=== PATIENT | male | born 1955 | race Hispanic/Latino ===

== ENCOUNTER 2019-10-23 10:53 | Emergency (ER) | payer MEDICARE ==
--- NOTE | 2019-10-23 13:06 | Emergency Department Report ---
Blank Doc - Documentation Documentation: 64-year-old male that presentrs with URI symptoms. This initial assessment/diagnostic orders/clinical plan/treatment(s) is/are subject to change based on patient's health status, clinical progression and re- assessment by fellow clinical providers in the ED. Further treatment and workup at subsequent clinical providers discretion. Patient/guardians urged not to elope from the ED as their condition may be serious if not clinically assessed and managed. Initial orders include: 1- Patient sent to [facility] for further evaluation and treatment 2- cxr 3- rap flu
--- NOTE | 2019-10-23 13:45 | XRay Report ---
CHEST 2 VIEWS INDICATION: cough. COMPARISON: None FINDINGS: Support devices: None. Heart: Heart size is normal. Previous CABG changes are suspected. Lungs/pleura: No acute air space or interstitial disease. No pneumothorax. Additional findings: None. IMPRESSION: No acute findings. Signer Name: Eddi Wilson Jr, MD Signed: 10/23/2019 1:41 PM Workstation Name: [id number]
[2019-10-23] MEDS ORDERED: dexAMETHasone 4 MG/ML VIAL IM ONE (14:07)
[2019-10-23] MEDS ORDERED: ALBUTEROL 2.5 MG/3 ML NEBU IH ONE (14:07)
[2019-10-23] MEDS ORDERED: IPRATROPIUM 0.02% NEBU 2.5 ML IH ONE (14:07)
[2019-10-23] MEDS ORDERED: HYDROcodone/ACETAMINOPHEN 5-325 MG TAB PO ONE (14:07)
--- NOTE | 2019-10-23 14:49 | Emergency Department Report ---
- General Chief Complaint: Upper Respiratory Infection Stated Complaint: FLU LIKE SYMPTOMS Time Seen by Provider: 10/23/19 13:05 Source: patient Mode of arrival: Ambulatory Limitations: No Limitations - History of Present Illness Initial Comments: Patient is a 64-year-old male presents emergency room with a chief complaint of "flulike illness" that began a month ago. He has associated productive cough, generalized body aches, headache, sore throat, nausea. He states he has been taking tffl-cqa-tbesicu medications without relief. He denies any vomiting, diarrhea, fever, CP. Patient is an every day smoker for the last 30 years. He denies any known past medical history or allergies to medications. - Related Data Previous Rx's Medication Instructions Recorded Last Taken Type Albuterol Sulfate [Proventil Hfa] 6.7 gm IH QID PRN #1 hfa.aer.ad 10/23/19 Unknown Rx Azithromycin 500 mg PO DAILY 3 Days #3 tablet 10/23/19 Unknown Rx Prednisone [predniSONE 10 mg 10 mg PO .TAPER #1 tab.ds.pk 10/23/19 Unknown Rx (6-Day Pack, 21 Tabs)] Allergies Allergy/AdvReac Type Severity Reaction Status Date / Time No Known Allergies Allergy Unverified 10/23/19 11:08 ED Review of Systems ROS: Stated complaint: FLU LIKE SYMPTOMS Other details as noted in HPI Comment: All other systems reviewed and negative ED Past Medical Hx - Past Medical History Previous Medical History?: No - Surgical History Past Surgical History?: No - Medications Home Medications: Home Medications Medication Instructions Recorded Confirmed Last Taken Type Albuterol Sulfate [Proventil Hfa] 6.7 gm IH QID PRN #1 hfa.aer.ad 10/23/19 Unknown Rx Azithromycin 500 mg PO DAILY 3 Days #3 tablet 10/23/19 Unknown Rx Prednisone [predniSONE 10 mg 10 mg PO .TAPER #1 tab.ds.pk 10/23/19 Unknown Rx (6-Day Pack, 21 Tabs)] ED Physical Exam - General Limitations: No Limitations General appearance: alert, in no apparent distress - Head Head exam: Present: atraumatic, normocephalic - Eye Eye exam: Present: normal appearance - ENT ENT exam: Present: normal orophraynx, mucous membranes moist, TM's normal bilaterally, normal external ear exam - Respiratory Respiratory exam: Present: normal lung sounds bilaterally, wheezes (bilaterally), prolonged expiratory (bilaterally). Absent: respiratory distress, rales, rhonchi, stridor, chest wall tenderness, accessory muscle use, decreased breath sounds - Cardiovascular Cardiovascular Exam: Present: regular rate, normal rhythm, normal heart sounds. Absent: systolic murmur, diastolic murmur, rubs, gallop - Neurological Exam Neurological exam: Present: alert, oriented X3 - Psychiatric Psychiatric exam: Present: normal affect, normal mood - Skin Skin exam: Present: warm, dry, intact ED Course Vital Signs 10/23/19 10/23/19 11:03 16:46 Temperature 98.2 F Pulse Rate 72 78 Respiratory 16 18 Rate Blood Pressure 136/75 Blood Pressure 119/70 [Left] O2 Sat by Pulse 94 92 Oximetry ED Medical Decision Making - Radiology Data Radiology results: report reviewed - Medical Decision Making Patient is a 64-year-old male presents emergency room with a chief complaint of "flulike illness" that began a month ago. He has associated productive cough, generalized body aches, headache, sore throat, nausea. He states he has been taking pavh-sjt-hrgaxtv medications without relief. He denies any vomiting, diarrhea, fever, CP. Patient is an every day smoker for the last 30 years. He denies any known past medical history or allergies to medications. Vitals with mild hypoxia most likely chronic in nature due to COPD from patient's long history of tobacco abuse, he is maintaining oxygen saturation >92%. On exam patient has wheezing bilaterally and prolonged expiratory phase. Patient given neb treatment, steroids, pain medication. Patient is currently in a long-term care facility. After nebulizer treatment breathing has significantly improved with just mild bilateral wheeze. Symptoms and examination consistent with acute on chronic COPD exacerbation. Given that patient is having a productive cough with wheezing will treat patient for acute bronchitis. Patient given prescription for azithromycin, prednisone, albuterol inhaler. advised to please use medication as prescribed. Follow-up with a primary care doctor in the next 2 to 3 days. Return to the emergency room immediately for any new or worsening symptoms including but not limited to fever, worsening shortness of breath, worsening cough, chest pain, etc. - Differential Diagnosis URI, PNA, viral illness, acute on chronic COPD, CHF, influenza Critical care attestation.: If time is entered above; I have spent that time in minutes in the direct care of this critically ill patient, excluding procedure time. ED Disposition Clinical Impression: Tobacco use Acute bronchitis Qualifiers: Bronchitis organism: unspecified organism Qualified Code(s): J20.9 - Acute bronchitis, unspecified Disposition: DC- TO HOME OR SELFCARE Is pt being admited?: No Does the pt Need Aspirin: No Condition: Stable Instructions: How to Stop Smoking (ED), Acute Bronchitis (ED) Additional Instructions: Please use medication as prescribed. Follow-up with a primary care doctor in the next 2 to 3 days. Return to the emergency room immediately for any new or worsening symptoms including but not limited to fever, worsening shortness of breath, worsening cough, chest pain, etc. Prescriptions: Azithromycin 500 mg PO DAILY 3 Days #3 tablet Prednisone [predniSONE 10 mg (6-Day Pack, 21 Tabs)] 10 mg PO .TAPER #1 tab.ds.pk Albuterol Sulfate [Proventil Hfa] 6.7 gm IH QID PRN #1 hfa.aer.ad PRN Reason: wheezing Referrals: PRIMARY CARE, [Primary Care Provider] - 2-3 Days Time of Disposition: 16:13 Print Language: [place]
[2019-10-23 16:47] VITALS: BP 119/70
== END 2019-10-23 16:50 | disposition home or self-care (01) ==
LOC: ED 10:53
DX: J20.9 Acute bronchitis, unspecified (principal); R52 Pain, unspecified; R11.0 Nausea; Z79.899 Other long term (current) drug therapy; Z72.0 Tobacco use
CPT/HCPCS: 71046; 96372; 99283; J1100